=== PATIENT | female | born 1945 | race Caucasian/White ===

== ENCOUNTER → 2024-01-16 14:16 | Outpatient (REF) | payer MEDICARE, SELFPAY | LOC: HWWDC 14:16 | PROVIDERS: ATTENDING PHYSICIAN Internal Medicine | DX: Z12.31 Encounter for screening mammogram for malignant neoplasm of breast (principal) | CPT/HCPCS: 77063; 77067 ==

== ENCOUNTER → 2025-02-01 13:03 | Outpatient (REF) | payer MEDICARE, SELFPAY | LOC: HWWDC 13:03 | PROVIDERS: ATTENDING PHYSICIAN Internal Medicine | DX: Z12.31 Encounter for screening mammogram for malignant neoplasm of breast (principal) | CPT/HCPCS: 77063; 77067 ==